=== PATIENT | male | born 1950 | race Caucasian/White ===

== ENCOUNTER 2021-01-17 18:22 | Inpatient (IN) | payer MEDICARE, SELFPAY ==
[2021-01-17] VITALS (10 sets, daily range): BP systolic 114–177; BP diastolic 52–95; PULSE 72–83; RESP 12–18; TEMP 36.4–37.7; O2SAT 96–99; BMI 32.5
--- NOTE | ~2021-01-17 | XR_ITS ---
EXAMINATION: XR chest 1V portable DATE: 01/20/2021 05:23 INDICATION: Intra-aortic balloon pump TECHNIQUE: frontal view of the chest was obtained. COMPARISON: Chest radiograph dated 01/19/2021 FINDINGS: The prior pacemaker lead and intra-aortic balloon pump have been removed. Persistent minimal bibasila r atelectasis. No pulmonary edema, pleural effusion or pneumothorax. The cardiomediastinal silhouette is normal. Plate and screw fixation for lower cervical anterior spinal fusion. IMPRESSION: 1. Persistent minimal bibasilar atelectasis. Reviewed, dictated and finalized at location A.
--- NOTE | ~2021-01-17 | XR_ITS ---
EXAMINATION: XR chest 1V portable DATE: 01/18/2021 09:08 INDICATION: Intra-arterial balloon pump TECHNIQUE: frontal view of the chest was obtained. COMPARISON: None FINDINGS: Cardiac pacemaker lead extends cephalad from the inferior vena cava with distal tip in the right vent ricle. Small metallic marker likely for reported intra-arterial balloon pump projects over the centra l mediastinum, unclear in the absence orthogonal imaging whether this is located at the aortic root o r descending thoracic aorta. Mild streaky opacities in the left lower lung zone and favor atelectasis over pneumonia. No pulmonary edema, pleural effusion or pneumothorax. The cardiomediastinal silhouette is normal. IMPRESSION: 1. Mild streaky atelectasis at the left lower lung zone. Reviewed, dictated and finalized at location B.
--- NOTE | ~2021-01-17 | XR_ITS ---
EXAMINATION: XR chest 1V portable EXAM DATE: 01/19/2021 05:32 INDICATION: Intra-atrial balloon pump TECHNIQUE: Portable AP frontal chest x-ray was obtained. Comparison is made to prior examination from 01/18. FINDINGS: Previously seen catheter or lead overlying the IVC and right ventricle is no longer identif ied. Small metallic marker projecting over central aspect of mediastinum unchanged. Small amount of l eft basilar linear opacity most consistent with subsegmental atelectasis. No pneumothorax or pleural effusion. Cardiomediastinal silhouette is normal. Lower cervical fusion hardware. IMPRESSION: 1. Small amount of left basilar linear opacity probably atelectasis. Reviewed, dictated and finalized at location A.
--- NOTE | 2021-01-17 18:29 | PC.NURSE ---
ER physician would like to hold off on any medications until cardiology consult.
--- NOTE | 2021-01-17 18:33 | ECG_ITS ---
Measurements Intervals [place] Rate: 80 P: 17 [place]: 188 QRS: 48 QRSD: 92 T: 75 QT: 377 QTc: 437 Interpretive Statements SINUS RHYTHM LOW QRS VOLTAGE IN PRECORDIAL LEADS INFERIOR ST ELEVATION MYOCARDIAL INJURY- ACUTE ABNORMAL ECG Electronically Signed On 01-17-2021 19:02:09 CDT by Crispin Lino D.O.
--- NOTE | 2021-01-17 18:37 | ED.CHESTPAIN ---
HPI - Chest Pain General Chief Complaint: Chest Pain Stated Complaint: STEMI Time Seen by Provider: 01/17/21 18:33 Source: patient, family and EMS History of Present Illness HPI narrative: Patient presents with chest pain. Code STEMI was called from the field. On arrival to the ER patient had chest pain for approximately 1 and 1/2 hours. Pain is achy, constant started with physical activity, no radiation. Denies any shortness of breath nausea or diaphoresis. Reported a history of coronary artery stenosis on a prior cath at another facility. Patient ports history of diabetes, hypertension, hyperlipidemia Related Data Home Medications Medication Instructions Recorded Confirmed albuterol sulfate 2 puff INHALATION Q6H PRN 01/17/21 01/17/21 amlodipine 10 mg PO DAILY 01/17/21 01/17/21 aspirin 81 mg PO DAILY 01/17/21 01/17/21 budesonide-formoterol [Symbicort] 2 puff INHALATION BID 01/17/21 01/17/21 dulaglutide [Trulicity] 1.5 mg SUBCUT WEEKLY 01/17/21 01/17/21 duloxetine 60 mg PO DAILY 01/17/21 01/17/21 empagliflozin [Jardiance] 10 mg PO BID 01/17/21 01/17/21 glimepiride 2 mg PO BID 01/17/21 01/17/21 meloxicam 15 mg PO DAILY 01/17/21 01/17/21 memantine 10 mg PO BID 01/17/21 01/17/21 metformin 500 mg PO BID 01/17/21 01/17/21 metoprolol tartrate 50 mg PO BID 01/17/21 01/17/21 omeprazole 20 mg PO DAILY 01/17/21 01/17/21 potassium citrate 15 meq PO DAILY 01/17/21 01/17/21 simvastatin 20 mg PO HS 01/17/21 01/17/21 tamsulosin 0.4 mg PO HS 01/17/21 01/17/21 vitamin D3-vitamin K2 2 cap PO DAILY 01/17/21 01/17/21 Allergies Allergy/AdvReac Type Severity Reaction Status Date / Time No Known Allergies Allergy Verified 01/17/21 18:36 Review of Systems Review of Systems: CONSTITUTIONAL: Denies fever, chills, or sweats. EYES: Denies visual changes, redness, or discharge. ENT: Denies rhinorrhea, congestion, sore throat, or otalgia. CARDIOVASCULAR: Denies palpitations, or edema. RESPIRATORY: Denies cough or dyspnea. GASTROINTESTINAL: Denies abdominal pain, nausea, vomiting, or diarrhea. GENITOURINARY: Denies dysuria or hematuria. SKIN: Denies rash or itching. MUSCULOSKELETAL: Denies back pain, joint pain, or myalgia. NEUROLOGIC: Denies headache, numbness, dizziness, or weakness. PSYCHIATRIC: Denies anxiety or depression. All systems reviewed & are unremarkable except as noted in HPI and below PMFSH Past Medical History Medical History Diabetes mellitus Hypertension Surgical History Surgical History Hx of cardiac catheterization Social History Social History Smoking status: Former smoker Alcohol intake: current Drinks per week: 1 Substance use: never Spiritual care concerns: Yes (Mormonism) Exam Narrative: GENERAL: Well-appearing, well-nourished, and in no acute distress. HEAD: Normocephalic, atraumatic. EYES: PERRLA and EOMI. ENT: Nares clear, no rhinorrhea or epistaxis. Mucous membranes moist. NECK: Supple. No masses. No JVD CHEST: Clear to auscultation. No respiratory distress. No wheezes rales or rhonchi HEART: Regular rate and rhythm. No murmur heard. Normal peripheral pulses. ABDOMEN: Soft, nontender, nondistended, normal active bowel sounds. EXTREMITIES: Normal range of motion. No edema. SKIN: Warm, dry, no rash. NEURO: No focal deficits. Alert and oriented x3. PSYCH: Normal mood and affect. Course Consultations Consultation #1: STEMI called prior to PT arrival, cath team is enroute prior to patient arrival. Repeat ekg on arrival consistent with STEMI. ASA was given my EMS team, additional anticoagulation ordered. Date: 01/17/21 Time: 18:34 Vital Signs Vital signs: Vital Signs Pulse Rate 81 01/17/21 18:23 Respiratory Rate 18 01/17/21 18:23 Blood Pressure 174/95 H 01/17/21 18:23 Pulse Oximetry 99 01/17/21 18:23 Temp
[2021-01-17] MEDS: HEPARIN SODIUM 5,000 UNITS/ML VIAL 4000 UNITS IV PUSH (18:39)
[2021-01-17] MEDS: TICAGRELOR 90 MG TABLET 180 MG PO (18:41)
[2021-01-17] MEDS: ONDANSETRON INJ 4 MG/2 ML VIAL IV PUSH (18:42)
[2021-01-17] MEDS: MORPHINE SULFATE (*CRX) 4 MG/ML INJ IV PUSH (18:42)
[2021-01-17] MEDS: METOPROLOL TARTRATE INJ 5 MG/5 ML VIAL IV PUSH (18:43)
[2021-01-17 18:53] LABS: Basophils Absolute Auto 0.1 K/mm3 (0.0-0.1); Basophils Percent Auto 0.4 % (0.2-1.2); Eosinophils Absolute Auto 0.1 K/mm3 (0-0.3); Eosinophils Percent Auto 0.3 % (0-4.4); Hematocrit 50.1 % (42.0-52.0); Hemoglobin 16.3 g/dL (14.0-18.0); Immature Granulocyte Absolute 0.09 K/mm3 (0.00-0.031); Immature Granulocyte Percent A 0.5 % (0-0.5); Lymphocytes Absolute Auto 3.59 K/mm3 (0.9-3.2); Lymphocytes Percent Auto 21.9 % (18.3-44.2); Mean Corpuscular HGB Conc 32.5 g/dl (32-36); Mean Corpuscular Volume 92.1 fl (80-100); Mean Platelet Volume 9.3 fl (7.4-10.4); Monocytes Absolute Auto 0.6 K/mm3 (0.1-0.6); Monocytes Percent Auto 3.7 % (2.6-8.5); Neutrophils Percent Auto 73.2 % (45.5-73.1); Platelet Count Result 271 k/mm3 (150-375); Red Blood Count 5.44 M/mm3 (4.6-6.20); Red Cell Distribution Width 12.7 % (11.5-14.5); White Blood Count 16.4 K/mm3 (4.5-10.0)
[2021-01-17 19:07] LABS: Partial Thromboplastin Time 28.5 SECONDS (22.3-36.8); Prothrombin Time 12.9 Seconds (11.1-14.7)
--- NOTE | 2021-01-17 19:07 | PM.CNCAR ---
Assessment and Plan Additional Plan INF wall STEMI, DM, HTN Plan emeregncy [facility], heparin, ASA, Ticagrelor, History of Present Illness History of Present Illness Consult date/time: 01/17/21 19:07 Consult reason: chest pain Reason For Visit: STEMI Narrative: Acute left side chest pain, 03/04, aching burning pain, associated with sweating started one hour ago, no precipitating or relieving factors. Review of Systems Review of Systems: All systems reviewed & are unremarkable except as noted in HPI and below PMFSH Past Medical History Medical History (Updated 01/17/21 @ 19:10 by Luis Head MD) Diabetes mellitus Hypertension Surgical History Surgical History (Updated 01/17/21 @ 19:10 by Luis Head MD) Hx of cardiac catheterization Social History Social History Smoking status: Former smoker Alcohol intake: current Drinks per week: 1 Substance use: never Spiritual care concerns: Yes (Zoroastrianism) Meds Home Medications and Allergies Home Medications Medication Instructions Recorded Confirmed Type albuterol sulfate 2 puff INHALATION Q6H PRN 01/17/21 01/17/21 History amlodipine 10 mg PO DAILY 01/17/21 01/17/21 History aspirin 81 mg PO DAILY 01/17/21 01/17/21 History budesonide-formoterol [Symbicort] 2 puff INHALATION BID 01/17/21 01/17/21 History dulaglutide [Trulicity] 1.5 mg SUBCUT WEEKLY 01/17/21 01/17/21 History duloxetine 60 mg PO DAILY 01/17/21 01/17/21 History empagliflozin [Jardiance] 10 mg PO BID 01/17/21 01/17/21 History glimepiride 2 mg PO BID 01/17/21 01/17/21 History meloxicam 15 mg PO DAILY 01/17/21 01/17/21 History memantine 10 mg PO BID 01/17/21 01/17/21 History metformin 500 mg PO BID 01/17/21 01/17/21 History metoprolol tartrate 50 mg PO BID 01/17/21 01/17/21 History omeprazole 20 mg PO DAILY 01/17/21 01/17/21 History potassium citrate 15 meq PO DAILY 01/17/21 01/17/21 History simvastatin 20 mg PO HS 01/17/21 01/17/21 History tamsulosin 0.4 mg PO HS 01/17/21 01/17/21 History vitamin D3-vitamin K2 2 cap PO DAILY 01/17/21 01/17/21 History Allergies Allergy/AdvReac Type Severity Reaction Status Date / Time No Known Allergies Allergy Verified 01/17/21 18:36 Vital Signs Vital Signs - 24 hr 01/17/21 18:23 01/17/21 18:31 01/17/21 18:33 Temperature 37.7 C H Pulse Rate 81 83 83 Respiratory Rate 18 14 Blood Pressure 174/95 H 177/95 H Pulse Oximetry 99 97 01/17/21 18:43 Temperature Pulse Rate 82 Respiratory Rate Blood Pressure Pulse Oximetry Exam Const: General: comfortable and no acute distress Other: Able to lie flat HENMT: General nose exam: Normal nares present and no epistaxis Mouth: Yes moist mucous membranes Eyes: Sclera: sclerae normal Pupils: Equal, round and reactive pupils present Neck: Neck: supple and no JVD Carotids: no bruits Resp: Auscultation: clear to auscultation bilaterally and lung sounds not diminished Other: No chest wall tenderness Cardio: Rate: regular rate Rhythm: regular rhythm Heart sounds: no gallops, no murmurs and no rubs GI: GI Palp: Yes Soft to palpation and No Tenderness to palpation present (GI) Auscultation: normal bowel sounds Skin: General skin exam: normal color, rashes and/or lesions noted and no erythema Other: Warm Neuro: Cranial nerves: Yes Equal, round and reactive pupils present Speech: normal speech Other: No obvious focal deficit or facial asymmetry Extrem: General: no edema Other: Normal capillary refills Intact distal pulses. Results Labs and Meds Result diagrams: 01/17/21 18:40 01/17/21 18:40 Lab results: Cardiac Enzymes 01/17/21 Range/Units 18:40 Troponin I Cancelled CBC 01/17/21 Range/Units 18:40 WBC 16.4 H (4.5-10.0) K/mm3 RBC 5.44 (4.6-6.20) M/mm3 Hgb 16.3 (14.0-18.0) g/dL Hct 50.1 (42.0-52.0) % Plt Count 271 (150-375) k/mm3 Lymph # (Auto)
[2021-01-17 19:13] LABS: Alanine Aminotransferase 79 U/L (4-50); Albumin Level 4.7 g/dL (3.5-5.1); Alkaline Phosphatase 119 U/L (38-126); Anion Gap 13 mmol/L (8-16); Aspartate Amino Transferase 97 U/L (17-59); Bilirubin,Total 1.5 mg/dL (0.2-1.3); Blood Urea Nitrogen 13 mg/dL (9-20); Calcium 10.9 mg/dL (8.4-10.2); Carbon Dioxide 26 mmol/L (22-30); Chloride 97 mmol/L (98-107); Estimated CRCL calculation 50 ml/min; Estimated Glomerular Filt Rate 50; Glucose 168 mg/dL (65-110); Potassium 4.5 mmol/L (3.4-5.0); Sodium 136 mmol/L (137-145)
[2021-01-17 19:29] LABS: NT Pro B Type Natriuretic Pept 42 pg/mL (5-100); Troponin I 0.044 ng/mL (0.000-0.034)
--- NOTE | 2021-01-17 19:31 | ECG_ITS ---
Measurements Intervals [place] Rate: 78 P: 61 [place]: 268 QRS: 56 QRSD: 86 T: 91 QT: 373 QTc: 427 Interpretive Statements SINUS RHYTHM WITH FIRST DEGREE AV BLOCK INFERIOR ST ELEVATION MYOCARDIAL INFARCT- ACUTE ANTEROLATERAL ST ELEVATION MYOCARDIAL INJURY- ACUTE BASELINE ARTIFACT- V1 ABNORMAL ECG Electronically Signed On 01-18-2021 6:23:29 CDT by Crispin Lino D.O.
--- NOTE | 2021-01-17 21:33 | WPDCARDPROC ---
Cardiac Cath Procedure Note Date of procedure:: 01/17/21 Performing physician:: Luis Head MD Assessment and Plan Additional Plan PROCEDURE 1. Coronary angiogram 2. PCI with aspiration thrombectomy and ANYA to distal RCA 3. IVUS 4. Intra-aortic balloon pump 5. Temporary transvenous pacemaker INDICATION Inf Wall STEMI HISTORY 70 Yrs old male with acute chest pain and inf wall STEMI CORONARY ANGIOGRAM Consent obtained, Patient Prepped and Draped in sterile fashion, time out done Sedation done with versed 3 mg and fentanyl 100 mcg and under my supervision. Patient had appropriate response during entire procedure and fully awake at end. Access sites included rt radial, rt [place], rt CFV and Lt [place], all obtained with modified Sildeinger technique Coronary angiogram was done with JL3.5 and JR4 1. Left main: normal gives LAD and LCX 2. LAD: gives intermediate size diagonal with no obstructive disease 3. LCX: gives large early OM1 then continues in AV groove with distal 90% stenosis 4. RCA: distal RCA 99% stenosis with large thrombus burden with disal emboli into rPL HEMODYNAMICS Aorta: 130/80 CORONARY INTERVENTION Pre-intervention: 99% occlusion in distal RCA with thormbus, class C, LIZA 1 flow Guide catheter: JR 4 and guideliner Anticoagulation: Heparin to keep ACT > 250 sec, ASA, Ticagrelor, Integrillin Details of intervention, Lesion crossed with Samurai wire and balloon dilation done with Emerge 2.5 * 12 mm balloon then followed by aspiration thrombectomy with EXPORT catheter. This was followed by stent ANYA Orsiro 4.0 * 26 mm, then another stent Orsiro 4.0 * 15 was deployed distally because of residual thrombus in distal RCA at bifurcation, and because of gap between stents was noted on IVUS, another ANYA XIENCE Gabriela 4.0 * 8 was deployed between and overlapping with 2 stents. Post dilation was done with 5.0 * 8 mm balloon. There was no reflow and IC adenosine was delivered 10 times each is 120 mcg. IVUS was done with [employer] [facility] [place] and showed stent well expanded and apposed. IC tPA 2 mg was given as well as IC integrillin. Post-intervention: 0% residual stenosis, LIZA 3 flow TEMPORARY TRANSVENOUS PACEMAKER Because of intermittent heart block, Temporary TV pacer was inserted into RV with adequate capture and set to backup of 30 bpm INTRA-AORTIC BALLOON PUMP Because of slow flow and chest pain, decision was to proceed with IABP insertion 50 cm balloon was advanced into aorta and pump started at 1:1 and augmentation pressure of 150 mmHg COMPLICATION: None, Chest pain improved at end of procedure Impella sheath sutured and rt [place] 5 F arterial sheath and rt CFV 7 F sheath was sutured in place Radial sheath was removed and TR band applied CONCLUSION Successful PCI to Distal RCA with aspiation thrombectomy and 3 overlapping ANYA Xience Gabriela 4.0 * 8, Orsiro 4.0 * 15 and orsio 4.0 * 26. Psot dilated with 5.0 * 8 mm balloon, IVUS guided intervention IABP insertion Temporary TV pacer. RECOMMENDATION 1. DAPT 2. Integrilin for 12 hours 3. IABP 1:1 overnight 4. EKG, serial enzymes and TTE 5. Remove Temporary pacer tomorrow if not needed overnight
--- NOTE | 2021-01-17 22:25 | ADMGEN ---
This patient, Ryan Gale, was admitted to Intensive Care Unit-2. Patient/family oriented to hospital policies and general routines including ID bracelet, bed and alarms, visiting hours, pain management, procedures, bathroom and other care routines, personal items, smoking policy, room service/diet, and visiting hours. Information on how to activate the Rapid Response Team has been discussed. Patient/Family are encouraged to report perceived risks to care and to ask questions if they do not understand what they are told or what they should do.
[2021-01-17] MEDS: NITROGLYCERIN/D5W 200 MCG/ML 50 MG/250 ML BTL IV CONT (22:50)
[2021-01-17] MEDS: ACETAMINOPHEN 325 MG TABLET 650 MG PO (23:57)
[2021-01-17] MEDS: SODIUM CHLORIDE 0.9% IV 1,000 ML 125 ML IV CONT (23:58)
[2021-01-18] VITALS (56 sets, daily range): BP systolic 96–195; BP diastolic 39–117; PULSE 70–87; RESP 12–93; TEMP 36.8–37.1; O2SAT 20–99
--- NOTE | 2021-01-18 | ECHO_ITS ---
Patient Info Name: Ryan Gale Age: 70 years : 1950 Gender: Male Ht: 69 in Wt: 218 lbs BSA: 2.23 m2 HR: 80 bpm BP: 143 / 62 mmHg Heart Rhythm: Sinus Rhythm Technical Quality: Fair Exam Date: 01/18/2021 8:58 AM Exam Location: [facility] Patient Status: Inpatient Admit Date: 01/17/2021 Staff Ordering Physician: Luis Head MD [place] Boatman: DOMINICK Attending Provider: Luis Head MD Exam Type: CA echo doppler color flow Study Info Indications I21.4 - Non-ST elevation (NSTEMI) myocardial infarction Complete two-dimensional, color flow and Doppler transthoracic echocardiogram is performed. Summary 1. Complete two-dimensional, color flow and Doppler transthoracic echocardiogram is performed. 2. Left ventricular chamber dimension is normal. 3. Left ventricular systolic function is normal, estimated at 55-60%. 4. There is mildly increased left ventricular wall thickness. 5. The left ventricular diastolic function is grade I diastolic dysfunction. 6. The basal inferior wall, and basal inferoseptal are akinetic. 7. The mid inferior wall is hypokinetic. 8. Left atrial chamber dimension is mildly enlarged. 9. There is mild mitral valve regurgitation. 10. There is mild tricuspid valve regurgitation. Left Ventricle Left ventricular chamber dimension is normal. Left ventricular systolic function is normal, estimated at 55-60%. There is mildly increased left ventricular wall thickness. The left ventricular diastolic function is grade I diastolic dysfunction. The basal inferior wall, and basal inferoseptal are akinetic. The mid inferior wall is hypokinetic. The basal inferolateral wall, and mid inferolateral wall are not visualized. All other garcia appear normal. Right Ventricle Right ventricular chamber dimension is normal. Right ventricular systolic function is normal. Left Atria Left atrial chamber dimension is mildly enlarged. Right Atria Right atrial chamber dimension is normal. Atrial Septum Intact interatrial septum visualized by color flow imaging. Aortic Valve The aortic valve is trileaflet. There is mild aortic valve sclerosis. There is no aortic valve stenosis. There is trace aortic valve regurgitation. Pulmonic Valve The pulmonic valve is normal. There is no pulmonic valve stenosis. There is trace pulmonic regurgitation. Mitral Valve The mitral valve has thickened leaflets. There is no mitral valve stenosis. There is mild mitral valve regurgitation. Tricuspid Valve The tricuspid valve leaflets are normal. There is no significant tricuspid valve stenosis. There is mild tricuspid valve regurgitation. No pulmonary hypertension, estimated pulmonary arterial systolic pressure is 16 mmHg. Pericardium/Pleural The pericardium appears normal. There is no pericardial effusion. Inferior Vena Cava Normal inferior vena cava with >50% collapse upon inspiration consistent with normal right atrial pressure, 10 mmHg. Aorta The aortic root size at the sinus of Valsalva is normal. Left Ventricular Outflow Tract Name Value Normal LVOT 2D LVOT Diameter 1.8 cm LVOT Doppler
[2021-01-18 00:29] LABS: Basophils Percent Auto 0.3 % (0.2-1.2); Eosinophils Percent Auto 0.1 % (0-4.4); Hematocrit 49.4 % (42.0-52.0); Hemoglobin 15.8 g/dL (14.0-18.0); Immature Granulocyte Percent A 0.6 % (0-0.5); Lymphocytes Absolute Auto 2.79 K/mm3 (0.9-3.2); Lymphocytes Percent Auto 17.9 % (18.3-44.2); Mean Corpuscular Hemoglobin 29.6 pg (26-34); Mean Corpuscular Volume 92.5 fl (80-100); Monocytes Absolute Auto 0.5 K/mm3 (0.1-0.6); Monocytes Percent Auto 3.1 % (2.6-8.5); Neutrophils Absolute Auto 12.2 K/mm3 (1.3-6.7); Platelet Count Result 286 k/mm3 (150-375); Red Blood Count 5.34 M/mm3 (4.6-6.20); Red Cell Distribution Width 12.8 % (11.5-14.5); White Blood Count 15.6 K/mm3 (4.5-10.0)
[2021-01-18 01:00] LABS: INR 1.1; Prothrombin Time 14.3 Seconds (11.1-14.7)
[2021-01-18 01:02] LABS: Partial Thromboplastin Time 90.3 SECONDS (22.3-36.8)
[2021-01-18] MEDS: ONDANSETRON HCL ODT 4 MG TABLET PO ×3 (01:41→10:56)
[2021-01-18] MEDS: MAG HYDROX/AL HYDROX/SIMETH 30 ML UDC PO ×2 (05:02→10:56)
[2021-01-18] MEDS: PANTOPRAZOLE 40 MG TABLET PO ×3 (06:26→20:03)
[2021-01-18 06:28] LABS: Basophils Absolute Auto 0.1 K/mm3 (0.0-0.1); Basophils Percent Auto 0.3 % (0.2-1.2); Eosinophils Percent Auto 0.1 % (0-4.4); Hemoglobin 15.3 g/dL (14.0-18.0); Immature Granulocyte Percent A 0.5 % (0-0.5); Lymphocytes Absolute Auto 4.29 K/mm3 (0.9-3.2); Lymphocytes Percent Auto 22.7 % (18.3-44.2); Mean Corpuscular HGB Conc 32.6 g/dl (32-36); Mean Corpuscular Hemoglobin 29.8 pg (26-34); Mean Corpuscular Volume 91.4 fl (80-100); Mean Platelet Volume 9.5 fl (7.4-10.4); Monocytes Absolute Auto 1.2 K/mm3 (0.1-0.6); Monocytes Percent Auto 6.6 % (2.6-8.5); Neutrophils Absolute Auto 13.2 K/mm3 (1.3-6.7); Neutrophils Percent Auto 69.8 % (45.5-73.1); Platelet Count Result 264 k/mm3 (150-375); Red Blood Count 5.14 M/mm3 (4.6-6.20); Red Cell Distribution Width 12.7 % (11.5-14.5); White Blood Count 18.9 K/mm3 (4.5-10.0)
[2021-01-18] MEDS: CALCIUM CARBONATE (TUMS) 500 MG (200 MG ELEMENTAL) PO ×2 (08:32→20:03)
[2021-01-18] MEDS: LACTATED RINGERS 1,000 ML 75 ML IV CONT ×2 (08:42→16:16)
[2021-01-18] MEDS: PROCHLORPERAZINE MALEATE 5 MG TABLET 10 MG PO (08:42)
[2021-01-18 08:58] LABS: Alanine Aminotransferase 78 U/L (4-50); Alkaline Phosphatase 89 U/L (38-126); Anion Gap 11 mmol/L (8-16); Aspartate Amino Transferase 254 U/L (17-59); Bilirubin,Total 1.7 mg/dL (0.2-1.3); Blood Urea Nitrogen 19 mg/dL (9-20); Calcium 10.2 mg/dL (8.4-10.2); Carbon Dioxide 22 mmol/L (22-30); Chloride 104 mmol/L (98-107); Estimated CRCL calculation 58 ml/min; Estimated Glomerular Filt Rate 60; Glucose 152 mg/dL (65-110); Potassium 4.3 mmol/L (3.4-5.0); Sodium 137 mmol/L (137-145)
--- NOTE | 2021-01-18 09:34 | WPDCNINT ---
Assessment and Plan Assessment and plan (1) ST elevation IA (STEMI): Qualifiers: Involved coronary artery: unspecified coronary artery Qualified Code(s): I21.3 - ST elevation (STEMI) myocardial infarction of unspecified site Code(s): I21.3 - ST elevation (STEMI) myocardial infarction of unspecified site Status: Acute Assessment and Plan: Status post PCI of RCA Continues to have some chest pain -continue nitroglycerin infusion Continue aspirin Brilinta, statin, lisinopril Hold beta-madi secondary to heart block (2) Hyperlipidemia: Code(s): E78.5 - Hyperlipidemia, unspecified Status: Acute Assessment and Plan: Continue statin (3) Heart block: Code(s): I45.9 - Conduction disorder, unspecified Status: Acute Assessment and Plan: Patient is status post transvenous pacemaker placement but currently in sinus rhythm and heart block seems to have resolved after catheter catheterization Discussed with cardiology. Plan to take out transvenous pacemaker but leave the introducer in place in case transfer in his pacemaker needs to be replaced Due to monitor Hold beta-madi for now (4) Cardiogenic shock: Code(s): R57.0 - Cardiogenic shock Status: Acute Assessment and Plan: Patient has intra-aortic balloon pump in which is said to one-to-one Continue balloon pump as patient is still having some residual chest pain Start heparin infusion (5) Acute kidney injury: Code(s): N17.9 - Acute kidney failure, unspecified Status: Acute Assessment and Plan: Baseline creatinine unknown Could be secondary to shock versus contrast Continue IV fluids (6) GERD (gastroesophageal reflux disease): Code(s): K21.9 - Gastro-esophageal reflux disease without esophagitis Status: Acute Assessment and Plan: PPI P.r.n. Mylanta a Tums (7) Diabetes mellitus: Code(s): E11.9 - Type 2 diabetes mellitus without complications Status: Acute Assessment and Plan: Diabetic diet Slight scale insulin (8) COPD (chronic obstructive pulmonary disease): Code(s): J44.9 - Chronic obstructive pulmonary disease, unspecified Status: Acute Assessment and Plan: Not in exacerbation P.r.n. albuterol Symbicort Additional Plan DVT prophylaxis -heparin infusion Nutrition -diabetic diet Code Status - Full Code Case discussed with Dr. Quiroz Total Critical Care Time - 45 minutes Due to a high probability of clinically significant, life threatening deterioration, the patient required my highest level of preparedness to intervene emergently and I personally spent this critical care time directly and personally managing the patient. This critical care time included obtaining a history; examining the patient; pulse oximetry; ordering and review of studies; arranging urgent treatment with development of a management plan; evaluation of patient's response to treatment; frequent reassessment; and discussions with other providers. It was exclusive of separately billable procedures and treating other patients and teaching time. Please see Assessment and Plan section and the rest of the note for further information on patient assessment and treatment Guide Visitor Consult Note Consult date: 01/18/21 Time Seen: 07:15 HPI: Ryan Gale is a 70 year old male presented with chest pain yesterday in evening to ER. Patient states pain started around 4:00 p.m. yesterday was 10/10 severe pressure in quality located in the center of his chest did not radiate anywhere else and no aggravating or relieving factors. Pain is as stated with shortness of breath nausea and lightheadedness. Or arrival to our ER patient was diagnosed with ST segment elevation IA and was taken to cardiac geochemical laboratory technician. Patient was diagnosed with inferior ST segment elevation IA and underwent PROCEDURE 1. Coronary angiogram 2. PCI with aspiration thrombectomy and ANYA to d
--- NOTE | 2021-01-18 09:42 | PM.PNCARD ---
Progress Note: A&P Assessment and Plan (1) ST elevation [place] (STEMI): Qualifiers: Involved coronary artery: unspecified coronary artery Qualified Code(s): I21.3 - ST elevation (STEMI) myocardial infarction of unspecified site Code(s): I21.3 - ST elevation (STEMI) myocardial infarction of unspecified site Status: Acute Assessment and Plan: Status post PCI to the RCA. RCA with significant clot burden and embolization resulting in slow to no reflow. See cath report. Residual circumflex disease. Will reduce balloon pump to 1:2. Hold off on beta-madi secondary to heart block noted and lab. Will DC TVP as he did not pace last night at all. Start heparin drip per protocol for another 24 hours or so. Continue aspirin, statin, lisinopril, nitroglycerin drip. Brilinta 90 mg p.o. b.i.d. (2) Heart block: Code(s): I45.9 - Conduction disorder, unspecified Status: Acute Assessment and Plan: Resolved. Will discontinue transvenous pacer (3) Hyperlipidemia: Code(s): E78.5 - Hyperlipidemia, unspecified Status: Acute Assessment and Plan: On statin (4) Hypertension: Code(s): I10 - Essential (primary) hypertension Status: Inactive Assessment and Plan: Above goal (5) Cardiogenic shock: Code(s): R57.0 - Cardiogenic shock Status: Acute Assessment and Plan: Balloon pump in place. Hopefully be able to discontinue within 24 hours. Subjective Date/time seen: 01/18/21 09:42 Interval history: 70-year-old with inferior STEMI. Patient has very slow to no reflow initially with extensive clot burden. Please see cardiac catheterization records for full details. Date of service 01/18/2021: He feels better than yesterday. He is still having some 5/10 pain although much better than yesterday. He has not had to use his pacemaker will be overnight. His he has no shortness of breath, groin pain. Review of Systems Review of Systems: All systems reviewed & are unremarkable except as noted in HPI and below Constitutional: Constitutional: Denies weakness Eyes: Eyes: Denies blurry vision ENT: Reports Normal hearing present Cardiovascular: Cardiovascular: Reports chest pain Respiratory: Respiratory: Denies dyspnea Gastrointestinal: Gastrointestinal: Denies abdominal pain and Reports nausea Genitourinary: Genitourinary: Denies dysuria Musculoskeletal: Musculoskeletal: Denies neck pain Integumentary/Breasts: Skin/Breast: Denies dry skin Neurologic: Denies numbness Psychiatric: Psychiatric: Denies anxiety Endocrine: Endocrine: Denies change in body appearance Hematologic/Lymphatic: Hematologic/Lymphatic: Denies easy bleeding Allergic/Immunologic: Allergic/Immunologic: Denies GI upset with certain foods Exam Const: General: comfortable and no acute distress Other: Able to lie flat HENMT: General nose exam: Normal nares present and no epistaxis Mouth: Yes moist mucous membranes Eyes: Sclera: sclerae normal Neck: Neck: supple and no JVD Carotids: no bruits Resp: Auscultation: clear to auscultation bilaterally and lung sounds not diminished Other: No chest wall tenderness Cardio: Rate: regular rate Rhythm: regular rhythm Heart sounds: no gallops, no murmurs and no rubs GI: Auscultation: normal bowel sounds Skin: General skin exam: normal color, rashes and/or lesions noted and no erythema Other: Warm Right groin venous and arterial sheath noted. No hematoma. Left-sided balloon pump noted. Neuro: Speech: normal speech Other: No obvious focal deficit or facial asymmetry Extrem: General: no edema Other: Normal capillary refills Intact distal pulses. Objective Data Vital Signs Vital Signs: Vital Signs - 24 hr 01/17/21 18:23 01/17/21 18:31 01/17/21 18:33 Temperature 37.7 C H Pulse Rate 81 83 83 Respiratory Rate 18 14 Blood Pressure 174/95 H 177/95 H Pulse Oximetry 99 97 01/17/21 18:43
[2021-01-18 09:47] LABS: Basophils Percent Auto 0.2 % (0.2-1.2); Hematocrit 44.4 % (42.0-52.0); Hemoglobin 14.7 g/dL (14.0-18.0); Immature Granulocyte Absolute 0.09 K/mm3 (0.00-0.031); Immature Granulocyte Percent A 0.5 % (0-0.5); Lymphocytes Absolute Auto 3.97 K/mm3 (0.9-3.2); Lymphocytes Percent Auto 20.9 % (18.3-44.2); Mean Corpuscular HGB Conc 33.1 g/dl (32-36); Mean Corpuscular Hemoglobin 30.1 pg (26-34); Mean Platelet Volume 9.5 fl (7.4-10.4); Monocytes Absolute Auto 1.2 K/mm3 (0.1-0.6); Monocytes Percent Auto 6.5 % (2.6-8.5); Neutrophils Absolute Auto 13.7 K/mm3 (1.3-6.7); Neutrophils Percent Auto 71.9 % (45.5-73.1); Platelet Count Result 263 k/mm3 (150-375); Red Blood Count 4.88 M/mm3 (4.6-6.20); Red Cell Distribution Width 12.7 % (11.5-14.5)
[2021-01-18 10:24] LABS: INR 1.1
[2021-01-18 10:25] LABS: Partial Thromboplastin Time 29.6 SECONDS (22.3-36.8)
[2021-01-18] MEDS: TICAGRELOR 90 MG TABLET PO ×2 (10:45→20:03)
[2021-01-18] MEDS: lisinopriL 5 MG TABLET PO (10:45)
[2021-01-18] MEDS: ASPIRIN 81 MG CHEWABLE TABLET PO (10:46)
[2021-01-18] MEDS: DULoxetine HCL 60 MG CAPSULE.DR PO (10:46)
[2021-01-18] MEDS: ATORVASTATIN 40 MG TABLET 80 MG PO (10:46)
--- NOTE | 2021-01-18 11:23 | PC.NURSE ---
Pacemaker removed by Dr. Quiroz at 0925. Patient denies additional chest pain or shortness of breath. Arterial sheath discontinued by this nurse, hemostasis achieved at 1018. Pedal pulse remain palpable, no additional chest pain or shortness of breath reported. Dressing applied to site. Will continue to monitor closely.
[2021-01-18] MEDS: HEPARIN SOD/D5W 100 UNITS/ML 25,000 UNITS/250 ML BAG 10 UNITS IV CONT (11:37)
--- NOTE | 2021-01-18 11:38 | PC.NURSE ---
[facility] flyer was given to patient.
[2021-01-18 12:02] LABS: Glucose Point of Care 154 mg/dl (65-105)
[2021-01-18 13:36] LABS: Hemoglobin A1C 7.3 % (<5.7)
[2021-01-18] MEDS: MORPHINE SULFATE (*CRX) 2 MG/ML INJ IV PUSH (14:34)
[2021-01-18] MEDS: LACTATED RINGERS 500 ML 999 ML IV CONT ×2 (14:34→18:18)
[2021-01-18 16:48] LABS: Glucose Point of Care 120 mg/dl (65-105)
--- NOTE | 2021-01-18 17:46 | PC.NURSE ---
Spoke with Dr. Rivera regarding differences in IABP recorded blood pressure - unassisted 109/63, assisted 92/56, manual blood pressure 177/113. Nitro drip to be held at this time, with continued goal for IABP sbp to be greater than 90, and less than 140. Drip may be resumed if sbp becomes greater than 140. Dr. Rivera advised to monitor the IABP pressure. She advised to refer to Dr. Sierra regarding decreased urine output. Spoke with Dr. Sierra & received order for LR 500 ml bolus x1, and to increase iv fluid rate to 125 ml/hr.
[2021-01-18 18:42] LABS: Partial Thromboplastin Time 50.8 SECONDS (22.3-36.8)
[2021-01-18] MEDS: HEPARIN SODIUM 5,000 UNITS/ML VIAL 4000 UNITS IV PUSH (19:00)
[2021-01-18] MEDS: ACETAMINOPHEN 325 MG TABLET 650 MG PO (20:02)
[2021-01-18] MEDS: TAMSULOSIN HCL 0.4 MG CAPSULE PO (20:03)
[2021-01-18 20:09] LABS: Glucose Point of Care 164 mg/dl (65-105)
[2021-01-18] MEDS: ZOLPIDEM TARTRATE (*CRX) 5 MG TABLET PO (21:27)
--- NOTE | 2021-01-18 22:18 | PC.NURSE ---
Condensation noted in helium line. This was noted in the helium line in closer proximity to the balloon pump machine than to the patient. [facility] dispatch consulted. [employer]or [employer] stated this is a common finding and should only be concerning if the balloon pump begins alarming. No change in patient status. Patient denies complaints at this time.
[2021-01-19] VITALS (47 sets, daily range): BP systolic 97–149; BP diastolic 56–88; PULSE 80–116; RESP 17–25; TEMP 36.6–36.9; O2SAT 90–96
[2021-01-19 01:12] LABS: Partial Thromboplastin Time 114.8 SECONDS (22.3-36.8)
[2021-01-19 05:15] LABS: Basophils Absolute Auto 0.1 K/mm3 (0.0-0.1); Basophils Percent Auto 0.4 % (0.2-1.2); Eosinophils Absolute Auto 0.1 K/mm3 (0-0.3); Eosinophils Percent Auto 0.4 % (0-4.4); Hematocrit 39.3 % (42.0-52.0); Hemoglobin 12.7 g/dL (14.0-18.0); Immature Granulocyte Absolute 0.08 K/mm3 (0.00-0.031); Immature Granulocyte Percent A 0.6 % (0-0.5); Lymphocytes Absolute Auto 3.15 K/mm3 (0.9-3.2); Lymphocytes Percent Auto 22.5 % (18.3-44.2); Mean Corpuscular HGB Conc 32.3 g/dl (32-36); Mean Corpuscular Hemoglobin 30.7 pg (26-34); Mean Corpuscular Volume 94.9 fl (80-100); Mean Platelet Volume 9.5 fl (7.4-10.4); Monocytes Absolute Auto 1.1 K/mm3 (0.1-0.6); Monocytes Percent Auto 7.8 % (2.6-8.5); Neutrophils Absolute Auto 9.5 K/mm3 (1.3-6.7); Neutrophils Percent Auto 68.3 % (45.5-73.1); Platelet Count Result 166 k/mm3 (150-375); Red Blood Count 4.14 M/mm3 (4.6-6.20); Red Cell Distribution Width 13.2 % (11.5-14.5)
[2021-01-19] MEDS: ACETAMINOPHEN 325 MG TABLET 650 MG PO (05:19)
[2021-01-19] MEDS: LACTATED RINGERS 1,000 ML 125 ML IV CONT (05:20)
[2021-01-19 05:27] LABS: Partial Thromboplastin Time 69.9 SECONDS (22.3-36.8)
[2021-01-19 07:18] LABS: Alanine Aminotransferase 55 U/L (4-50); Albumin Level 3.1 g/dL (3.5-5.1); Alkaline Phosphatase 83 U/L (38-126); Anion Gap 7 mmol/L (8-16); Aspartate Amino Transferase 168 U/L (17-59); Bilirubin,Total 1.7 mg/dL (0.2-1.3); Blood Urea Nitrogen 14 mg/dL (9-20); Carbon Dioxide 23 mmol/L (22-30); Chloride 104 mmol/L (98-107); Estimated CRCL calculation 63 ml/min; Estimated Glomerular Filt Rate > 60; Glucose 163 mg/dL (65-110); Magnesium 1.8 mg/dL (1.6-2.3); Phosphorus 2.6 mg/dL (2.5-4.5); Potassium 4.2 mmol/L (3.4-5.0); Sodium 134 mmol/L (137-145)
[2021-01-19] MEDS: TICAGRELOR 90 MG TABLET PO ×2 (08:00→20:02)
[2021-01-19] MEDS: ATORVASTATIN 40 MG TABLET 80 MG PO (08:00)
[2021-01-19] MEDS: lisinopriL 5 MG TABLET PO (08:00)
[2021-01-19] MEDS: DULoxetine HCL 60 MG CAPSULE.DR PO (08:00)
[2021-01-19] MEDS: ASPIRIN 81 MG CHEWABLE TABLET PO (08:00)
[2021-01-19] MEDS: PANTOPRAZOLE 40 MG TABLET PO ×2 (08:00→20:02)
[2021-01-19] MEDS: MAGNESIUM SULF 2 GM/WATER 50ML 2 GM/50 ML BAG IVPB (08:21)
[2021-01-19 08:32] LABS: Partial Thromboplastin Time 36.4 SECONDS (22.3-36.8)
--- NOTE | 2021-01-19 09:41 | WPDINTPN ---
Progress Note: A&P Assessment and Plan (1) ST elevation [place] (STEMI): Qualifiers: Involved coronary artery: unspecified coronary artery Qualified Code(s): I21.3 - ST elevation (STEMI) myocardial infarction of unspecified site Code(s): I21.3 - ST elevation (STEMI) myocardial infarction of unspecified site Status: Acute Assessment and Plan: Status post PCI of RCA Chest pain is better and it appears that nitroglycerin has not been helpful. Patient feels better with morphine will continue p.r.n. 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 No issues since arrival to ICU Transvenous pacemaker was removed yesterday by Cardiology Continue to monitor Plan to start beta-madi today (4) Cardiogenic shock: Code(s): R57.0 - Cardiogenic shock Status: Acute Assessment and Plan: Patient has intra-aortic balloon pump in which is currently at 1:2 Discussed with Cardiology plan to remove intra-aortic balloon pump today Heparin infusion has been stopped in anticipation of removal (5) Acute kidney injury: Code(s): N17.9 - Acute kidney failure, unspecified Status: Acute Assessment and Plan: Baseline creatinine unknown Could be secondary to shock versus contrast Improved with IV fluids and creatinine is down to 1.1 Decrease IV fluid rate (6) GERD (gastroesophageal reflux disease): Code(s): K21.9 - Gastro-esophageal reflux disease without esophagitis Status: Acute Assessment and Plan: Continue PPI P.r.n. Mylanta a Tums (7) Diabetes mellitus: Code(s): E11.9 - Type 2 diabetes mellitus without complications Status: Acute Assessment and Plan: Diabetic diet Slight scale insulin (8) COPD (chronic obstructive pulmonary disease): Code(s): J44.9 - Chronic obstructive pulmonary disease, unspecified Status: Acute Assessment and Plan: Not in exacerbation P.r.n. albuterol Symbicort Additional Plan DVT prophylaxis -start Lovenox Nutrition - diabetic diet Code Status - Full Code Case discussed with Dr. Simon Total Critical Care Time - 35 minutes Due to a high probability of clinically significant, life threatening deterioration, the patient required my highest level of preparedness to intervene emergently and I personally spent this critical care time directly and personally managing the patient. This critical care time included obtaining a history; examining the patient; pulse oximetry; ordering and review of studies; arranging urgent treatment with development of a management plan; evaluation of patient's response to treatment; frequent reassessment; and discussions with other providers. It was exclusive of separately billable procedures and treating other patients and teaching time. Please see Assessment and Plan section and the rest of the note for further information on patient assessment and treatment Subjective Date/time seen: 01/19/21 Overnight events reviewed. Afebrile Continues to be on IABP at 1:2 ratio Continues to be on heparin and nitroglycerin infusion Vitals acceptable He states he feels better today and is eating his meal. He states his chest pain is down to 2/10 pressure but is significantly better than yesterday. Denies any heartburn shortness of breath nausea vomiting. No headache. All other systems were reviewed and were negative Interval history: 70-year-old with inferior STEMI. Patient has very slow to no reflow initially with extensive clot burden. Please see cardiac cathete
--- NOTE | 2021-01-19 10:37 | PM.PNCARD ---
Progress Note: A&P Additional Plan 70-year-old man with: Coronary artery disease acute inferior wall myocardial infarction difficult and challenging emergency PCI due to large thrombotic burden in the distal RCA which clearly embolized into the distal right coronary vessel as the result of emergency PCI. He was very unstable required temporary pacing an intraductal wound pump support he is much more stable now. A true balloon pump was removed today by me directly at the bedside with 30 minutes of direct manual compression over the puncture site following a balloon pump removal. There is no hemorrhaging at at this time. 6 hours of bed rest has been ordered following balloon pump removal. Will start beta-madi today as he is in sinus tachycardia with one-to-one conduction. Anticipate low considered discharge over the weekend. His established trauma program manager elsewhere will follow up after this event. He needs to be considered a candidate for staged circumflex intervention which I do not plan to do during this hospitalization if he remains stable. Jordy Simon MD [facility] Subjective Date/time seen: Date of service: 01/19/21 10:37 Interval history: 70-year-old with inferior STEMI. Patient has very slow to no reflow initially with extensive clot burden. Please see cardiac catheterization records for full details. Date of service 01/19/2021: Patient is stable asymptomatic supine in the ICU still with the intra-aortic balloon pump in the left femoral artery. Requiring no pressor support sinus tachycardia with one-to-one conduction, temporary pacemaker removed yesterday. Recommended and planned to interact balloon pump at this time Exam Const: General: comfortable and no acute distress Other: Able to lie flat HENMT: General nose exam: Normal nares present and no epistaxis Mouth: Yes moist mucous membranes Eyes: Sclera: sclerae normal Pupils: Equal, round and reactive pupils present Neck: Neck: supple and no JVD Carotids: no bruits Resp: Auscultation: clear to auscultation bilaterally and lung sounds not diminished Other: No chest wall tenderness Cardio: Rate: regular rate Rhythm: regular rhythm Heart sounds: no gallops, no murmurs and no rubs GI: Auscultation: normal bowel sounds Skin: General skin exam: normal color, rashes and/or lesions noted and no erythema Other: Warm Right groin venous and arterial sheath noted. No hematoma. Left-sided balloon pump noted. Neuro: Cranial nerves: Yes Equal, round and reactive pupils present and Yes Normal hearing present Speech: normal speech Other: No obvious focal deficit or facial asymmetry Extrem: General: no edema Other: Normal capillary refills Intact distal pulses. Objective Data Vital Signs Vital Signs: Vital Signs - 24 hr 01/18/21 11:00 01/18/21 12:00 01/18/21 13:00 Temperature Pulse Rate 76 73 82 Respiratory Rate 18 20 93 H Blood Pressure 119/69 154/111 H 166/101 H Pulse Oximetry 94 93 20 L 01/18/21 14:00 01/18/21 14:36 01/18/21 15:00 Temperature 36.8 C Pulse Rate 74 72 73 Respiratory Rate 18 18 Blood Pressure 155/98 H 155/98 H 163/106 H Pulse Oximetry 92 94 01/18/21 15:16 01/18/21 15:41 01/18/21 16:00 Temperature 36.8 C Pulse Rate 74 78 70 Respiratory Rate 18 20 Blood Pressure 163/106 H 166/105 H Pulse Oximetry 95 96 01/18/21 16:17 01/18/21 17:00 01/18/21 17:07 Temperature Pulse Rate 72 72 71 Respiratory Rate 18 Blood Pressure 163/106 H 172/113 H 172/113 H Pulse Oximetry 93 01/18/21 18:00 01/18/21 19:00 01/18/21 20:00 Temperature 36.8 C Pulse Rate 76 75 78 Respiratory Rate 21 H 20 19 Blood Pressure 165/99 H 105/63 104/60 Pulse Oximetry 95 95 94 01/18/21 21:00 01/18/21 21:32 01/18/21 22:00 Temperature Pulse Rate 86 79 76 Respiratory Rate 20 17 18 Blood Pressure 97/57 L 109/62 Pulse Oximetry 94 94 95 01/18/21 23:00 01/18/21 23:50 01/19/21 00:00 Temperature Pulse Rate 82 80
--- NOTE | 2021-01-19 10:46 | ECG_ITS ---
Measurements Intervals [employer] Rate: 104 P: 70 ND: 198 QRS: -3 QRSD: 83 T: -52 QT: 350 QTc: 462 Interpretive Statements SINUS TACHYCARDIA INFERIOR ST ELEVATION INFARCT- PROBABLY RECENT BASELINE ARTIFACT- I, II, III, AVR, AVL,A VF ABNORMAL ECG Electronically Signed On 01-19-2021 15:00:48 CDT by Crispin Lino D.O.
[2021-01-19] MEDS: METOPROLOL SUCCINATE EXT REL 50 MG TABCR PO (12:09)
[2021-01-19 13:16] LABS: Glucose Point of Care 163 mg/dl (65-105)
[2021-01-19 17:29] LABS: Glucose Point of Care 148 mg/dl (65-105)
[2021-01-19] MEDS: LACTATED RINGERS 1,000 ML 75 ML IV CONT (17:55)
[2021-01-19] MEDS: TAMSULOSIN HCL 0.4 MG CAPSULE PO (20:02)
[2021-01-19 20:20] LABS: Glucose Point of Care 212 mg/dl (65-105)
[2021-01-19] MEDS: ZOLPIDEM TARTRATE (*CRX) 5 MG TABLET PO (20:53)
[2021-01-20] VITALS (21 sets, daily range): BP systolic 110–140; BP diastolic 33–92; PULSE 92–114; RESP 16–27; TEMP 35.7–36.8; O2SAT 94–99
[2021-01-20 05:02] LABS: Hematocrit 36.3 % (42.0-52.0); Hemoglobin 12.1 g/dL (14.0-18.0); Mean Corpuscular HGB Conc 33.3 g/dl (32-36); Mean Corpuscular Volume 93.1 fl (80-100); Mean Platelet Volume 9.6 fl (7.4-10.4); Platelet Count Result 147 k/mm3 (150-375); Red Cell Distribution Width 13.3 % (11.5-14.5); White Blood Count 12.5 K/mm3 (4.5-10.0)
[2021-01-20 05:19] LABS: Alanine Aminotransferase 43 U/L (4-50); Albumin Level 3.3 g/dL (3.5-5.1); Alkaline Phosphatase 82 U/L (38-126); Anion Gap 7 mmol/L (8-16); Aspartate Amino Transferase 76 U/L (17-59); Bilirubin,Total 1.6 mg/dL (0.2-1.3); Blood Urea Nitrogen 11 mg/dL (9-20); Calcium 8.3 mg/dL (8.4-10.2); Carbon Dioxide 22 mmol/L (22-30); Chloride 104 mmol/L (98-107); Estimated CRCL calculation 77 ml/min; Estimated Glomerular Filt Rate > 60; Glucose 157 mg/dL (65-110); Phosphorus 2.3 mg/dL (2.5-4.5); Potassium 3.7 mmol/L (3.4-5.0); Sodium 133 mmol/L (137-145)
[2021-01-20] MEDS: LACTATED RINGERS 1,000 ML 75 ML IV CONT (07:12)
[2021-01-20] MEDS: ENOXAPARIN 40 MG/0.4 ML SYRINGE SUB-Q (08:46)
[2021-01-20] MEDS: DULoxetine HCL 60 MG CAPSULE.DR PO (08:47)
[2021-01-20] MEDS: lisinopriL 5 MG TABLET PO (08:47)
[2021-01-20] MEDS: POTASSIUM/PHOSPHORUS/SODIUM 1.5 GM PACKET 1 PACKET PO ×2 (08:47→18:25)
[2021-01-20] MEDS: ATORVASTATIN 40 MG TABLET 80 MG PO (08:47)
[2021-01-20] MEDS: ASPIRIN 81 MG CHEWABLE TABLET PO (08:47)
[2021-01-20] MEDS: METOPROLOL SUCCINATE EXT REL 50 MG TABCR PO (08:48)
[2021-01-20] MEDS: PANTOPRAZOLE 40 MG TABLET PO ×2 (08:48→20:51)
[2021-01-20] MEDS: TICAGRELOR 90 MG TABLET PO ×2 (08:48→20:51)
--- NOTE | 2021-01-20 09:48 | WPDINTPN ---
Progress Note: A&P Assessment and Plan (1) ST elevation [place] (STEMI): Qualifiers: Involved coronary artery: unspecified coronary artery Qualified Code(s): I21.3 - ST elevation (STEMI) myocardial infarction of unspecified site Code(s): I21.3 - ST elevation (STEMI) myocardial infarction of unspecified site Status: Acute Assessment and Plan: Status post PCI of RCA Chest pain appears to have resolved and the residual chest pain appears more pleuritic. 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 No issues since arrival to ICU Transvenous pacemaker was removed 01/18 by Cardiology Continue to monitor Patient now on beta-madi today (4) Cardiogenic shock: Code(s): R57.0 - Cardiogenic shock Status: Acute Assessment and Plan: Patient has intra-aortic balloon pump which was removed yesterday Heparin infusion has been stopped in anticipation of removal (5) Acute kidney injury: Code(s): N17.9 - Acute kidney failure, unspecified Status: Acute Assessment and Plan: Baseline creatinine unknown Could be secondary to shock versus contrast Improved with IV fluids and creatinine is down to no rate Will DC IV fluid rate (6) GERD (gastroesophageal reflux disease): Code(s): K21.9 - Gastro-esophageal reflux disease without esophagitis Status: Acute Assessment and Plan: Continue PPI P.r.n. Mylanta a Tums (7) Diabetes mellitus: Code(s): E11.9 - Type 2 diabetes mellitus without complications Status: Acute Assessment and Plan: Diabetic diet Slight scale insulin (8) COPD (chronic obstructive pulmonary disease): Code(s): J44.9 - Chronic obstructive pulmonary disease, unspecified Status: Acute Assessment and Plan: Not in exacerbation P.r.n. albuterol Symbicort (9) Electrolyte abnormality: Code(s): E87.8 - Other disorders of electrolyte and fluid balance, not elsewhere classified Status: Acute Assessment and Plan: Replace low potassium and phosphate Additional Plan DVT prophylaxis -start Lovenox Nutrition - diabetic diet Code Status - Full Code Case discussed with Dr. Aurora Valle PT OT, incentive spirometry, up in chair Transfer out ICU today Subjective Date/time seen: 01/20/21 09:48 IABP was removed yesterday. Patient did develop a small hematoma post removal Patient feels better this morning and denies any new complaints. He still having some chest pain but states that this is different from the 1 he came in with. Chest pain is 4 to 5/10 but is only present with deep breathing and coughing. Denies any dyspnea or heartburn. No shortness of breath headache or dizziness. No palpitation All other systems were reviewed and were negative Interval history: 70-year-old with inferior STEMI, heart block and cardiogenic shock Review of Systems Review of Systems: All systems reviewed & are unremarkable except as noted in HPI and below (HPI) Exam Narrative: General: Pt is alert awake and in NAD Lungs/Chest: Trachea central Clear BS B/L, No crackles or wheezing. Cardiac: RRR. Normal S1 S2. No murmurs IABP sound Circulation: Bilateral dorsalis pedis pulses are easily palpable Abdomen: Normal bowel sounds.. Soft. NT. ND. Extremities: No clubbing, cyanosis or edema. Large bruise in left femoral area, no tenderness or firmness appreciated : Valle in place Neurologic: Follows commands. Moves all 4 extremities PERRL alert oriented x3 Skin: No Rash Objective Data Vital Signs Vital Signs: Vital
--- NOTE | 2021-01-20 09:52 | PM.PNCARD ---
Progress Note: A&P Additional Plan 70-year-old man with: Coronary artery disease presenting several days ago with acute inferior ST-elevation [place]. Patient underwent angiographically successful PCI to the distal RCA which had a extensive thrombotic burden. There was slow flow in the vessel despite the vessel being patent resulting in significant infarction with persistent ST segment elevation. Despite all of that he is now stable. Intra-aortic balloon pump was removed yesterday and he can be moved out of the ICU I believe today. Discharge tomorrow would be appropriate if there are no further complications. 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 Medical therapy verses scheduled staged PCI of his distal circumflex lesion can be considered as outpatient follow-up is conducted. Jordy Simon MD [facility] Subjective Date/time seen: Date of service: 01/20/21 09:52 Interval history: 70-year-old with inferior STEMI. Patient has very slow to no reflow initially with extensive clot burden. Please see cardiac catheterization records for full details. Date of service 01/20/2021: Patient feels well today up in the chair no cardiovascular complaints. Hemodynamics are stable. Exam Const: General: comfortable and no acute distress Other: Able to lie flat HENMT: General nose exam: Normal nares present and no epistaxis Mouth: Yes moist mucous membranes Eyes: Sclera: sclerae normal Pupils: Equal, round and reactive pupils present Neck: Neck: supple and no JVD Carotids: no bruits Resp: Auscultation: clear to auscultation bilaterally and lung sounds not diminished Other: No chest wall tenderness Cardio: Rate: regular rate Rhythm: regular rhythm Heart sounds: no gallops, no murmurs and no rubs GI: Auscultation: normal bowel sounds Skin: General skin exam: normal color, rashes and/or lesions noted and no erythema Other: Warm Right groin venous and arterial sheath noted. No hematoma. Left-sided balloon pump noted. Neuro: Cranial nerves: Yes Equal, round and reactive pupils present and Yes Normal hearing present Speech: normal speech Other: No obvious focal deficit or facial asymmetry Extrem: General: no edema Other: Normal capillary refills Intact distal pulses. Objective Data Vital Signs Vital Signs: Vital Signs - 24 hr 01/19/21 09:59 01/19/21 10:00 01/19/21 10:05 Temperature Pulse Rate 111 H 111 H 113 H Respiratory Rate 22 H 22 H 25 H Blood Pressure 142/81 H 142/81 H 149/80 H Pulse Oximetry 93 93 91 01/19/21 10:10 01/19/21 10:15 01/19/21 10:20 Temperature Pulse Rate 111 H 113 H 112 H Respiratory Rate 23 H 24 H 23 H Blood Pressure 143/71 H 130/79 130/69 Pulse Oximetry 90 92 93 01/19/21 10:25 01/19/21 10:30 01/19/21 10:45 Temperature Pulse Rate 116 H 109 H 105 H Respiratory Rate 22 H 23 H 21 H Blood Pressure 147/82 H 145/70 H 148/81 H Pulse Oximetry 91 93 92 01/19/21 11:00 01/19/21 11:15 01/19/21 11:30 Temperature Pulse Rate 108 H 106 H 106 H Respiratory Rate 21 H 23 H 22 H Blood Pressure 142/80 H 142/81 H 135/75 Pulse Oximetry 93 94 94 01/19/21 12:00 01/19/21 12:09 01/19/21 12:30 Temperature 36.6 C Pulse Rate 110 H 110 H 110 H Respiratory Rate 23 H 23 H Blood Pressure 148/84 H 139/78 Pulse Oximetry 95 93 01/19/21 13:30 01/19/21 14:00 01/19/21 14:30 Temperature Pulse Rate 108 H 100 100 Respiratory Rate 20 22 H 22 H Blood Pressure 141/83 H 131/82 131/82 Pulse Oximetry 94 95 95 01/19/21 14:45 01/19/21 15:00 01/19/21 15:15 Temperature Pulse Rate 100 102 H 102 H Respiratory Rate 23 H 24 H 24 H Blood Pressure 135/76 130/74 142/80 H Pulse Oximetry 95 94 93 01/19/21 15:30 01/19/21 16:00 01/19/21 16:30 Temperature 36.8 C Pulse Rate 105 H 103 H 102 H Respiratory Rate 25 H 24 H 25 H Blood Pressure 140/82 138/81 143/82 H Pulse O
[2021-01-20 12:36] LABS: Glucose Point of Care 169 mg/dl (65-105)
--- NOTE | 2021-01-20 14:13 | PC.NURSE ---
This patient, Ryan Gale, was received from [ ICU 2 ] on 01/20/21 at 1413. Patient/family oriented to unit policies and routines
--- NOTE | 2021-01-20 14:31 | PC.NURSE ---
This patient, Ryan Gale, was transferred to [[id number]] on 01/20/21 at 1415. Personal belongings sent with patient. Report given to [NERI Barros ]. Appropriate documentation sent with patient.
[2021-01-20 16:35] LABS: Glucose Point of Care 162 mg/dl (65-105)
[2021-01-20 20:08] LABS: Glucose Point of Care 185 mg/dl (65-105)
[2021-01-20] MEDS: TAMSULOSIN HCL 0.4 MG CAPSULE PO (20:51)
[2021-01-21] VITALS: BP 127/71; PULSE 104; PULSE 108; RESP 16; TEMP 36.2; O2SAT 97
[2021-01-21 02:00] VITALS: PULSE 102
[2021-01-21 04:00] VITALS: BP 131/75; PULSE 104; PULSE 105; RESP 20; TEMP 36.4; O2SAT 95; O2SAT 97
[2021-01-21 05:19] LABS: Hematocrit 37.3 % (42.0-52.0); Hemoglobin 11.9 g/dL (14.0-18.0); Mean Corpuscular HGB Conc 31.9 g/dl (32-36); Mean Corpuscular Hemoglobin 30.4 pg (26-34); Mean Corpuscular Volume 95.4 fl (80-100); Platelet Count Result 174 k/mm3 (150-375); Red Blood Count 3.91 M/mm3 (4.6-6.20); Red Cell Distribution Width 13.3 % (11.5-14.5)
[2021-01-21 05:29] LABS: Sodium 133 mmol/L (137-145)
[2021-01-21 05:31] LABS: Alanine Aminotransferase 33 U/L (4-50); Albumin Level 3.4 g/dL (3.5-5.1); Alkaline Phosphatase 82 U/L (38-126); Anion Gap 5 mmol/L (8-16); Aspartate Amino Transferase 49 U/L (17-59); Bilirubin,Total 1.7 mg/dL (0.2-1.3); Blood Urea Nitrogen 12 mg/dL (9-20); Calcium 8.6 mg/dL (8.4-10.2); Carbon Dioxide 23 mmol/L (22-30); Chloride 105 mmol/L (98-107); Estimated CRCL calculation 59 ml/min; Estimated Glomerular Filt Rate > 60; Glucose 161 mg/dL (65-110); Magnesium 1.9 mg/dL (1.6-2.3); Phosphorus 2.3 mg/dL (2.5-4.5); Potassium 3.8 mmol/L (3.4-5.0)
[2021-01-21 06:00] VITALS: PULSE 103
[2021-01-21 08:00] VITALS: BP 129/73; PULSE 106; PULSE 108; RESP 20; TEMP 36.7; O2SAT 96
[2021-01-21 08:13] LABS: Glucose Point of Care 171 mg/dl (65-105)
[2021-01-21] MEDS: ENOXAPARIN 40 MG/0.4 ML SYRINGE SUB-Q (08:47)
[2021-01-21 08:48] VITALS: PULSE 105
[2021-01-21] MEDS: METOPROLOL SUCCINATE EXT REL 50 MG TABCR PO (08:48)
[2021-01-21] MEDS: TICAGRELOR 90 MG TABLET PO (08:48)
[2021-01-21] MEDS: lisinopriL 5 MG TABLET PO (08:48)
[2021-01-21] MEDS: DULoxetine HCL 60 MG CAPSULE.DR PO (08:48)
[2021-01-21] MEDS: ASPIRIN 81 MG CHEWABLE TABLET PO (08:48)
[2021-01-21] MEDS: PANTOPRAZOLE 40 MG TABLET PO (08:48)
[2021-01-21] MEDS: ATORVASTATIN 40 MG TABLET 80 MG PO (08:49)
--- NOTE | 2021-01-21 10:57 | PM.DS ---
DS: Admitting Diagnosis Admitting Diagnosis Inferior ST-elevation [place] DS: Discharge Diagnosis Discharge Diagnosis (1) ST elevation [place] (STEMI): Qualifiers: Involved coronary artery: unspecified coronary artery Qualified Code(s): I21.3 - ST elevation (STEMI) myocardial infarction of unspecified site Code(s): I21.3 - ST elevation (STEMI) myocardial infarction of unspecified site Status: Acute DS: Summary Hospital Course Reason for hospitalization: Acute myocardial infarction Hospital Course: This is a 70-year-old man with a previous history of mild coronary artery disease treated medically who presented to the hospital with chest pain and acute ST segment elevation inferior wall [place]. Emergency STEMI team was activated he was brought to the cardiac catheterization lab emergently. The patient was found to have subtotal occlusion of the distal aspect of his right coronary artery which is a large dominant vessel the principal reason for the occlusion was a large thrombotic burden in this segment of the vessel. He underwent emergent PCI which was angiographically successful but was associated with slow reflow phenomenon and for this reason the patient was unstable initially with complete heart block transiently in the cardiac catheterization lab he received a temporary pacemaker and also an intra-aortic balloon pump. He received intracoronary medication for the slow reflow as well which is all detailed in the separately dictated catheterization note. Obviously the patient spent the 1st couple of days in the ICU recovering from all this. In the 1st 24 hours his rhythm was normal so the temporary pacemaker was removed. The day after that the balloon pump was removed and he was hemodynamically stable he was moved out of the ICU is now ambulatory and appears to be a good candidate for discharge. His angiograms divot demonstrate a high-grade lesion in the distal circumflex which may require intervention in a staged fashion following discharge that was my impression that he was unstable enough that this should not be attempted during this hospitalization. The patient troponin level ronel to 7.1 following this event. Despite persistent inferior ST elevation his echocardiogram looks favorable with overall normal left ventricular systolic function. He appears to be a good candidate for discharge today. He has an established relationship with a outside counter help in [facility] and intends to follow up with him. Status at Discharge Functional status at discharge: independent ambulation Time Spent with Patient Time attestation: Total time spent providing and/or coordinating discharge services: Time spent: Greater than 30 minutes Exam Const: General: comfortable and no acute distress Other: Obese gentleman no apparent distress HENMT: Mouth: Yes moist mucous membranes Eyes: Sclera: sclerae normal Pupils: Equal, round and reactive pupils present Neck: Neck: supple and no JVD Thyroid: thyroid normal Resp: Effort & Inspection: normal respiratory effort Auscultation: clear to auscultation bilaterally Cardio: Rate: regular rate Rhythm: regular rhythm Other: PMI not palpable no murmur no gallop GI: GI Palp: Yes Soft to palpation Auscultation: normal bowel sounds Skin: General skin exam: normal color Extrem: General: normal to inspection DS: Data Data Completed and Pending Labs on day of discharge: Labs from last 24 hours 01/21/21 01/21/21 01/21/21 07:55 04:20 04:20 WBC 11.0 H RBC 3.91 L Hgb 11.9 L Hct 37.3 L MCV 95.4 MCH 30.4 MCHC 31.9 L RDW 13.3 Plt Count 174 MPV 10.0 Sodium 133 L Potassium 3.8 Chloride 105 Carbon Dioxide 23 Anion Gap 5 L BUN 12 Creatinine 1.00 Estim Creat Clear Calc 59 Estimated GFR > 60 Glucose 161 H POC Capillary Glucose 171 H Calcium 8.6 Phosphorus 2.3 L Magnesium 1.9 Total Bilirubin 1.7 H AST 49
--- NOTE | 2021-01-21 11:53 | PC.NURSE ---
Discharge papers gone through with Granddaughter Angeles via telephone, instructions from Dr. Simon relayed to Angeles. All questions answered per Angeles. Will continue to monitor.
[2021-01-21] MEDS: POTASSIUM PHOS/SODIUM PHOS 250 MG TABLET PO (12:17)
== END 2021-01-21 13:05 | disposition home or self-care (01) | DRG 215 ==
LOC: ANHED 18:41 → ANHICU 18:46 → ANHIMU 01-20 14:33
PROVIDERS: Internal Medicine; Internal Medicine Cardiovascular Disease; Internal Medicine Nephrology; Admitting Provider Internal Medicine Interventional Cardiology; Emergency Provider Emergency Medicine; PCP Internal Medicine Infectious Disease; Visit Provider Specialist
PROC: 4A023N7 Measurement of Cardiac Sampling and Pressure, Left Heart, Percutaneous Approach (ICD-10-PCS; CPT 93452; principal; 2021-01-17 18:40)
PROC: 02HA3RZ Insertion of Short-term External Heart Assist System into Heart, Percutaneous Approach (ICD-10-PCS; 2021-01-17 18:40)
PROC: 02HA3RZ Insertion of Short-term External Heart Assist System into Heart, Percutaneous Approach (ICD-10-PCS; CPT 33210; 2021-01-17 18:40)
PROC: 02HA3RZ Insertion of Short-term External Heart Assist System into Heart, Percutaneous Approach (ICD-10-PCS; 2021-01-17 18:40)
PROC: 02HA3RZ Insertion of Short-term External Heart Assist System into Heart, Percutaneous Approach (ICD-10-PCS; 2021-01-17 18:40)
DX: I21.11 ST elevation (STEMI) myocardial infarction involving right coronary artery (principal); R57.0 Cardiogenic shock; N17.9 Acute kidney failure, unspecified; I45.9 Conduction disorder, unspecified; I10 Essential (primary) hypertension; I25.10 Atherosclerotic heart disease of native coronary artery without angina pectoris; E11.9 Type 2 diabetes mellitus without complications; E78.5 Hyperlipidemia, unspecified; K21.9 Gastro-esophageal reflux disease without esophagitis; J44.9 Chronic obstructive pulmonary disease, unspecified; Z87.891 Personal history of nicotine dependence
CPT/HCPCS: 33210; 33967; 36415; 71045; 80053; 82948; 83036; 83735; 83880; 84100; 84484; 85025; 85027; 85610; 85730; 92978; 93005; 93306; 93458; 94640; 97161; 97166; 97530; 97535; 99285; A9270; C1725; C1753; C1757; C1769; C1874; C1887; C1894; C9606; J0153; J1327; J1644; J1650; J2250; J2270; J2405; J2997; J3010; J3475; J7030; J7040; J7060; J7120; L1830

== ENCOUNTER 2021-07-23 09:30 | Outpatient (RCR) | payer MEDICARE, SELFPAY | END 2021-07-27 14:39 | disposition home or self-care (01) | PROVIDERS: PCP Internal Medicine Infectious Disease | DX: Z98.61 Coronary angioplasty status (principal) | CPT/HCPCS: 93798 ==